=== PATIENT | male | born 1990 | race American Indian/Alaskan Native ===

== ENCOUNTER 2017-06-01 22:00 | Emergency (ER) | payer SELFPAY ==
[2017-06-01 22:11] VITALS: BP 113/75
== END 2017-06-02 01:23 | disposition left against medical advice (07) ==
LOC: ED 22:00
DX: Z53.21 Procedure and treatment not carried out due to patient leaving prior to being seen by health care provider (principal)

== ENCOUNTER 2017-06-02 09:12 | Emergency (ER) | payer SELFPAY ==
[2017-06-02] MEDS ORDERED: XYLOCAINE 1% MPF 5 mL INFILTRATI ONE (14:33)
[2017-06-02] MEDS ORDERED: ROCEPHIN IM ONE (14:33)
[2017-06-02] MEDS ORDERED: ZITHROMAX PO ONE (14:33)
--- NOTE | 2017-06-02 14:37 | Emergency Department Report ---
ED Male HPI - General Chief complaint: Urogenital-Male Stated complaint: BURNING WHILE URINATING Time Seen by Provider: 06/02/17 14:24 Source: patient Mode of arrival: Ambulatory Limitations: No Limitations - History of Present Illness Initial comments: pt is a 26 y/o aam with nmh who presents state that his partner advised him to seek tx for std, pt states symptoms of dysuria and penile discharge yellow green , there is no rash lesions or opens sores no fever no chills no abdominal pain no n/v , pain 4/10 exacarbated by voiding, there are no relieving factors last contact 4 days ago with same partner. Onset/Timin -: days(s) Location: penis Radiation: none Severity: moderate Severity scale (0 -10): 5 Quality: burning Consistency: intermittent Improves with: none Worsens with: urination discharge, dysuria. denies: swelling, mass, rash, urinary retention, blood in urine, fever, nausea/vomiting, incontinence - Related Data Sexually active: Yes Previous Rx's Medication Instructions Recorded Last Taken Type Doxycycline [Vibramycin CAP] 100 mg PO Q12HR #20 capsule 06/02/17 Unknown Rx Allergies Allergy/AdvReac Type Severity Reaction Status Date / Time quetiapine [From Seroquel] Allergy Mild Shortness Verified 06/01/17 22:12 of Breath aspirin Allergy Swelling Verified 06/01/17 22:14 cyclobenzaprine Allergy Swelling Verified 06/01/17 22:15 [From Flexeril] ibuprofen Allergy Swelling Verified 06/01/17 22:14 risperidone [From Risperdal] Allergy Swelling Verified 06/01/17 22:15 tramadol Allergy Swelling Verified 06/01/17 22:14 acetaminophen [From Tylenol] AdvReac Shortness Verified 06/01/17 22:13 of Breath ED Review of Systems ROS: Stated complaint: BURNING WHILE URINATING Other details as noted in HPI Constitutional: denies: chills, fever Eyes: denies: eye pain, eye discharge, vision change ENT: denies: ear pain, throat pain Respiratory: denies: cough, shortness of breath, wheezing Cardiovascular: denies: chest pain, palpitations Endocrine: no symptoms reported Gastrointestinal: denies: abdominal pain, nausea, diarrhea Genitourinary: dysuria, discharge. denies: urgency, hematuria, testicular pain , testicular mass Musculoskeletal: denies: back pain, joint swelling, arthralgia Skin: denies: rash, lesions Neurological: denies: headache, weakness, paresthesias Psychiatric: denies: anxiety, depression Hematological/Lymphatic: denies: easy bleeding, easy bruising ED Past Medical Hx - Past Medical History Previous Medical History?: No - Surgical History Past Surgical History?: Yes Additional Surgical History: L shoulder. Eyes - Social History Smoking Status: Never Smoker Substance Use Type: None - Medications Home Medications: Home Medications Medication Instructions Recorded Confirmed Last Taken Type Doxycycline [Vibramycin CAP] 100 mg PO Q12HR #20 capsule 06/02/17 Unknown Rx ED Physical Exam - General Limitations: No Limitations General appearance: alert, in no apparent distress - Head Head exam: Present: atraumatic, normocephalic - Eye Eye exam: Present: normal appearance - ENT ENT exam: Present: mucous membranes moist - Neck Neck exam: Present: normal inspection - Respiratory Respiratory exam: Present: normal lung sounds bilaterally. Absent: respiratory distress - Cardiovascular Cardiovascular Exam: Present: regular rate, normal rhythm. Absent: systolic murmur, diastolic murmur, rubs, gallop - GI/Abdominal GI/Abdominal exam: Present: soft, normal bowel sounds - Rectal Rectal exam: Present: deferred - exam: Present: normal inspection, urethral discharge (yellow ), circumcision. Absent: testicular tenderness, scrotal swelling, vertical testicular lie External exam: Present: normal external exam. Absent: erythema, swelling, lesions, lacerations, ecchymosis, bleeding - Extremities Exam Extremities exam: Present: normal inspection - Back Exam Back exam: Present: normal inspection - Neurological Exam Neurological exam: Present: alert, oriented X3, CN II-XII intact, normal gait, reflexes normal - Psychiatric Psychiatric exam: Present: normal affect, normal mood - Skin Skin exam: Present: warm, dry, intact, normal color. Absent: rash ED Course Vital Signs 06/02/17 09:18 Temperature 98.8 F Pulse Rate 95 H Respiratory 16 Rate Blood Pressure 110/76 O2 Sat by Pulse 100 Oximetry ED Medical Decision Making - Medical Decision Making pt is a 26 y/o aam who presents for std exposure pt complains of dysuria with penile discharge, no rash no lesions no opens sores exam confirms same no testicular swelling no palpable lymph no hernia no rash, plan: tx for STI pt will follow up with health departement tomorrow for hiv screening, pt verbalized agreement and understanding of discharge plan. Critical care attestation.: If time is entered above; I have spent that time in minutes in the direct care of this critically ill patient, excluding procedure time. ED Disposition Clinical Impression: STD (male) Disposition: DC-01 TO HOME OR SELFCARE Is pt being admited?: No Does the pt Need Aspirin: No Condition: Good Instructions: Sexually Transmitted Diseases (ED), Safe Sex (ED) Additional Instructions: follow up with health department tomorrow for hiv screening Prescriptions: Doxycycline [Vibramycin CAP] 100 mg PO Q12HR #20 capsule Referrals: PRIMARY CARE, [Primary Care Provider] - 3-5 Days Forms: Work/School Release Form(ED) Time of Disposition: 14:48
[2017-06-02 15:22] VITALS: BP 136/62
== END 2017-06-02 15:24 | disposition home or self-care (01) ==
LOC: ED 09:12
DX: A64 Unspecified sexually transmitted disease (principal); Z88.8 Allergy status to other drugs, medicaments and biological substances
CPT/HCPCS: 96372; 99282; J0696

== ENCOUNTER 2018-03-28 14:44 | Emergency (ER) | payer SELFPAY ==
--- NOTE | 2018-03-28 16:28 | Emergency Department Report ---
ED Male HPI - General Chief complaint: Urogenital-Male Stated complaint: MEDICAL CLEARANCE Time Seen by Provider: 03/28/18 16:27 Source: patient Mode of arrival: Ambulatory Limitations: No Limitations - History of Present Illness Initial comments: This is a 27-year-old male nontoxic, well nourished in appearance, no acute signs of distress presents to the ED with c/o of penile "bumps" but has resolved now. Patient denies any testicular pain or swelling. Patient denies any penile ulcers or lesions. Patient denies any penile discharge. Patient denies any nausea, vomiting, chest pain, shortness of breathe, fever, chills, headache, back pain, numbness, tingling, stiff neck. Patient denies any urinary symptoms. Location: penis Radiation: none Severity scale (0 -10): 0 Consistency: intermittent, now resolved Improves with: none Worsens with: none denies other symptoms. denies: discharge, swelling, mass, rash, urinary retention, blood in urine, dysuria, fever, nausea/vomiting, incontinence - Related Data Previous Rx's Medication Instructions Recorded Last Taken Type Doxycycline [Vibramycin CAP] 100 mg PO Q12HR #20 capsule 06/02/17 Unknown Rx Acyclovir [Zovirax Tab] 400 mg PO ONCE #4 tablet 03/28/18 Unknown Rx Allergies Allergy/AdvReac Type Severity Reaction Status Date / Time quetiapine [From Seroquel] Allergy Mild Shortness Verified 03/28/18 14:47 of Breath aspirin Allergy Swelling Verified 03/28/18 14:47 cyclobenzaprine Allergy Swelling Verified 03/28/18 14:47 [From Flexeril] ibuprofen Allergy Swelling Verified 03/28/18 14:47 risperidone [From Risperdal] Allergy Swelling Verified 03/28/18 14:47 tramadol Allergy Swelling Verified 03/28/18 14:47 acetaminophen [From Tylenol] AdvReac Shortness Verified 03/28/18 14:47 of Breath ED Review of Systems ROS: Stated complaint: MEDICAL CLEARANCE Other details as noted in HPI Constitutional: denies: chills, fever Eyes: denies: eye pain, eye discharge, vision change ENT: denies: ear pain, throat pain Respiratory: denies: cough, shortness of breath, wheezing Cardiovascular: denies: chest pain, palpitations Endocrine: no symptoms reported Gastrointestinal: denies: abdominal pain, nausea, vomiting, diarrhea Genitourinary: denies: urgency, dysuria Musculoskeletal: denies: back pain, joint swelling, arthralgia Skin: denies: rash, lesions Neurological: denies: headache, weakness, paresthesias Psychiatric: denies: anxiety, depression Hematological/Lymphatic: denies: easy bleeding, easy bruising ED Past Medical Hx - Past Medical History Hx Psychiatric Treatment: Yes (Schizophrenia, bipolar, anxiety.) - Surgical History Additional Surgical History: L shoulder. Eyes - Social History Smoking Status: Current Some Day Smoker Substance Use Type: None - Medications Home Medications: Home Medications Medication Instructions Recorded Confirmed Last Taken Type Doxycycline [Vibramycin CAP] 100 mg PO Q12HR #20 capsule 06/02/17 Unknown Rx Acyclovir [Zovirax Tab] 400 mg PO ONCE #4 tablet 03/28/18 Unknown Rx ED Physical Exam - General Limitations: No Limitations General appearance: alert, in no apparent distress - Head Head exam: Present: atraumatic, normocephalic - Eye Eye exam: Present: normal appearance Pupils: Present: normal accommodation - ENT ENT exam: Present: normal exam, mucous membranes moist - Neck Neck exam: Present: normal inspection - Respiratory Respiratory exam: Present: normal lung sounds bilaterally. Absent: respiratory distress - Cardiovascular Cardiovascular Exam: Present: regular rate, normal rhythm. Absent: systolic murmur, diastolic murmur, rubs, gallop - GI/Abdominal GI/Abdominal exam: Present: soft, normal bowel sounds - Rectal Rectal exam: Present: deferred - exam: Present: normal inspection. Absent: testicular tenderness, urethral discharge, scrotal swelling, vertical testicular lie, circumcision External exam: Present: normal external exam. Absent: erythema, swelling, lesions, lacerations, ecchymosis, bleeding - Extremities Exam Extremities exam: Present: normal inspection - Back Exam Back exam: Present: normal inspection - Neurological Exam Neurological exam: Present: alert, oriented X3 - Psychiatric Psychiatric exam: Present: normal affect, normal mood - Skin Skin exam: Present: warm, dry, intact, normal color. Absent: rash ED Course Vital Signs 03/28/18 14:47 Temperature 98.3 F Pulse Rate 86 Respiratory 16 Rate Blood Pressure 139/81 O2 Sat by Pulse 100 Oximetry - Reevaluation(s) Reevaluation #1: 03/28/18 17:44 Patient is speaking in full sentences with no signs of distress noted. ED Medical Decision Making - Medical Decision Making This is a 27-year-old male that presents with intermittent questionable genital herpes. Patient currently denies any herpes but stated this comes and goes. Patient denies any penile discharge or any urinary symptoms. RPR has been obtained and pending. Patient did receive 1 g Rocephin and 1 g of azithromycin. I will treat patient with acyclovir at discharge. Patient was instructed to return tomorrow for results of RPR. Patient was referred to Follow-up with a primary care doctor in 3-5 days or if symptoms worsen and continue return to emergency room as soon as possible. At time of discharge, the patient does not seem toxic or ill in appearance. No acute signs of distress noted. Patient agrees to discharge treatment plan of care. No further questions noted by the patient. Critical care attestation.: If time is entered above; I have spent that time in minutes in the direct care of this critically ill patient, excluding procedure time. ED Disposition Clinical Impression: Possible exposure to STD Genital herpes Qualifiers: Herpes simplex infection site: unspecified Qualified Code(s): A60.00 - Herpesviral infection of urogenital system, unspecified Disposition: DC-01 TO HOME OR SELFCARE Is pt being admited?: No Does the pt Need Aspirin: No Condition: Stable Instructions: Genital Herpes Simplex (ED), Safe Sex (ED), Acyclovir (By mouth) Additional Instructions: Follow-up with a primary care doctor in 3-5 days or if symptoms worsen and continue return to emergency room as soon as possible. Do not consume any alcohol while taking antibiotics. Return tomorrow morning for RPR results. Prescriptions: Acyclovir [Zovirax Tab] 400 mg PO ONCE #4 tablet Referrals: PRIMARY CAREMD [Primary Care Provider] - 3-5 Days MIGUEL A CONDON MD [Staff Physician] - 3-5 Days [facility] [Outside] - 3-5 Days [facility] [Outside] - 3-5 Days Forms: Work/School Release Form(ED)
[2018-03-28] MEDS ORDERED: ZITHROMAX PO ONE (17:15)
[2018-03-28] MEDS ORDERED: XYLOCAINE 1% MPF 5 mL INFILTRATI ONE (17:15)
[2018-03-28] MEDS ORDERED: ROCEPHIN IM ONE (17:15)
[2018-03-28 18:28] VITALS: BP 130/80
== END 2018-03-28 18:27 | disposition home or self-care (01) ==
LOC: ED 14:44
DX: A60.00 Herpesviral infection of urogenital system, unspecified (principal); F31.9 Bipolar disorder, unspecified; F20.9 Schizophrenia, unspecified; F41.9 Anxiety disorder, unspecified; Z72.0 Tobacco use; Z88.6 Allergy status to analgesic agent; Z88.8 Allergy status to other drugs, medicaments and biological substances
CPT/HCPCS: 36415; 86592; 96372; 99283; J0696

== ENCOUNTER 2018-11-11 21:50 | Emergency (ER) | payer OTHER ==
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
== END 2018-11-11 22:11 | disposition home or self-care (01) ==
LOC: ED 21:50

== ENCOUNTER 2021-02-28 06:37 | Emergency (ER) | payer SELFPAY ==
[2021-02-28 07:28] VITALS: BP 124/61
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
== END 2021-02-28 07:48 | disposition home or self-care (01) ==
LOC: ED 06:37
DX: M54.2 Cervicalgia (principal); R51.9 Headache, unspecified; M54.5 Low back pain; M25.561 Pain in right knee; M25.562 Pain in left knee; F20.9 Schizophrenia, unspecified; F41.9 Anxiety disorder, unspecified; F31.9 Bipolar disorder, unspecified; Z88.6 Allergy status to analgesic agent; Z88.8 Allergy status to other drugs, medicaments and biological substances; Z79.899 Other long term (current) drug therapy; V89.2XXA Person injured in unspecified motor-vehicle accident, traffic, initial encounter; Y93.89 Activity, other specified; Y92.488 Other paved roadways as the place of occurrence of the external cause; Y99.8 Other external cause status
CPT/HCPCS: 99282